=== PATIENT | male | born 1980 | race Caucasian/White ===

== ENCOUNTER → 2018-03-15 10:31 | Outpatient (CLI) | payer OTHER, SELFPAY ==
[2018-03-21 03:06] LABS: QNTFERON TB Ag Minus Nil Value 0.35 IU/mL (.); QNTFERON TB Ag Value 0.45 IU/mL (.); QNTFERON TB Mitogen Value > 10.00 IU/mL (.)
[2018-03-21 08:59] LABS: QNTIFERON TB Gold Positive (Negative)
== END ==
LOC: MTLAB 10:35
PROVIDERS: Visit Provider Dermatology Pediatric Dermatology
DX: L40.0 Psoriasis vulgaris (principal); Z79.899 Other long term (current) drug therapy
CPT/HCPCS: 36415; 86480